=== PATIENT | male | born 1990 | race Two or more races ===

== ENCOUNTER 2017-12-11 04:56 | Emergency (ER) | payer SELFPAY ==
[2017-12-11] MEDS: diazePAM 5 MG TABLET PO (05:25)
[2017-12-11] MEDS: MORPHINE SULFATE 10 MG/ML VIAL. IM (05:26)
== END 2017-12-11 05:59 | disposition home or self-care (01) ==
LOC: ER 04:56
DX: M54.32 Sciatica, left side (principal)
CPT/HCPCS: 96372; 99283; J2270